=== PATIENT | male | born 1965 ===

== ENCOUNTER 2017-02-09 09:39 | Inpatient (IN) | payer OTHER ==
--- NOTE | 2017-02-09 09:47 | ED PDOC ---
HPI: General Adult Time Seen by Provider: 02/09/17 09:44 Chief Complaint (Provider): chest pain History Per: Patient History/Exam Limitations: no limitations Additional Complaint(s): 51yo male comes to the ED complaining of non-radiating chest pain and vomit yesterday. Occasionally he gets short of breath. Also reports leg cramps last night. States back pain started this morning while he was at work. No dysuria, hematuria. Back pain does not radiate to the legs. PMD: Brit Past Medical History Reviewed: Historical Data, Nursing Documentation, Vital Signs Vital Signs: Last Vital Signs Temp 98 F 02/09/17 09:40 Pulse 96 H 02/09/17 11:43 Resp 20 02/09/17 11:43 BP 161/107 H 02/09/17 11:43 Pulse Ox 98 02/09/17 11:43 - Medical History PMH: HTN - Family History Family History: States: Unknown Family Hx - Allergies Allergies/Adverse Reactions: Allergies Allergy/AdvReac Type Severity Reaction Status Date / Time No Known Allergies Allergy Verified 02/09/17 09:48 Review of Systems ROS Statement: Except As Marked, All Systems Reviewed And Found Negative Cardiovascular: Positive for: Chest Pain Respiratory: Positive for: Shortness of Breath Gastrointestinal: Positive for: Vomiting Musculoskeletal: Positive for: Back Pain. Negative for: Leg Pain Physical Exam - Reviewed Nursing Documentation Reviewed: Yes Vital Signs Reviewed: Yes - Physical Exam Appears: Positive for: Well, Non-toxic, No Acute Distress Head Exam: Positive for: ATRAUMATIC, NORMAL INSPECTION, NORMOCEPHALIC Skin: Positive for: Warm, Dry Eye Exam: Positive for: EOMI, PERRL Cardiovascular/Chest: Positive for: Regular Rate, Rhythm Respiratory: Positive for: Normal Breath Sounds. Negative for: Rales, Rhonchi, Wheezing Gastrointestinal/Abdominal: Positive for: Normal Exam, Soft. Negative for: Tenderness Extremity: Positive for: Normal ROM Neurologic/Psych: Positive for: Alert, Oriented - Laboratory Results Result Diagrams: 02/09/17 10:15 02/09/17 10:15 - ECG O2 Sat by Pulse Oximetry: 98 (RA) Pulse Ox Interpretation: Normal Disposition - Clinical Impression Clinical Impression: Chest pain - Patient ED Disposition Is Patient to be Admitted: Yes - Disposition Disposition Time: 12:26 Condition: FAIR - Pt Status Changed To: Hospital Disposition Of: Observation - POA Present On Arrival: None Additional Comments - Additional Comments Additional Comments: Documented by Porter Henriquez acting as a scribe for Pb Carolina MD. All medical record entries made by the Scribe were at my direction and personally dictated by me. I have reviewed the chart and agree that the record accurately reflects my personal performance of the history, physical exam, medical decision making, and the department course for this patient. I have also personally directed, reviewed, and agree with the discharge instructions and disposition.
[2017-02-09 10:21] LABS: BASO # 0.1 K/uL (0.0-0.2); BASO % 1.4 % (0.0-2.0); EOS % 0.1 % (0.0-4.0); HEMATOCRIT 48.4 % (35.0-51.0); LYMPH # 1.1 K/uL (1.0-4.3); LYMPH % 22.3 % (20.0-40.0); MEAN CELL VOLUME 100.4 fl (80.0-94.0); MEAN CORPUSCULAR HEMOGLOBIN 33.6 pg (27.0-31.0); MEAN CORPUSCULAR HGB CONC 33.4 g/dL (33.0-37.0); MEAN PLATELET VOLUME 10.4 fl (7.2-11.7); MONO # 0.7 K/uL (0.0-0.8); MONO % 14.8 % (0.0-10.0); NEUT # 3.1 K/uL (1.8-7.0); NEUT % 61.4 % (50.0-75.0); NRBC % 0.1 % (0.0-0.0); RED CELL DISTRIBUTION WIDTH 13.2 % (11.5-14.5)
[2017-02-09 10:32] LABS: ALKALINE PHOSPHATASE 75 U/L (38-126); ALT/SGPT 118 U/L (21-72); AST/SGOT 111 U/L (17-59); BILIRUBIN,TOTAL 2.7 mg/dl (0.2-1.3); BLOOD UREA NITROGEN 12 mg/dl (9-20); CALCIUM 9.5 mg/dL (8.4-10.2); CARBON DIOXIDE 26 mmol/L (22-30); CHLORIDE 96 mmol/L (98-107); GFR AFRICAN-AMERICAN > 60; GLUCOSE,RANDOM 136 mg/dL (75-110); POTASSIUM 3.1 MMOL/L (3.6-5.0); SODIUM 143 mmol/l (132-148); TOTAL PROTEIN 9.3 G/DL (6.3-8.2)
--- NOTE | 2017-02-09 11:10 | RAD ---
HISTORY: chest pain COMPARISON: No prior. TECHNIQUE: Chest PA and lateral FINDINGS: LUNGS: No active pulmonary disease. PLEURA: No significant pleural effusion identified. No pneumothorax apparent. CARDIOVASCULAR: Normal. OSSEOUS STRUCTURES: No significant abnormalities. VISUALIZED UPPER ABDOMEN: Normal. OTHER FINDINGS: None. IMPRESSION: No active disease.
[2017-02-09] MEDS ORDERED: Potassium Chloride 20 mEq ER Tab PO ONE ×2 (12:18→12:32)
[2017-02-09] MEDS ORDERED: Metoprolol Succinate 100 mg XL Tab PO STA (14:01)
[2017-02-09] MEDS ORDERED: Labetalol 5mg/ml (4ml) IVP STA (16:11)
[2017-02-09] MEDS ORDERED: Labetalol 5mg/ml (4ml) ONE (16:12)
[2017-02-09] MEDS ORDERED: Nitroglycerin 2% 1GM UD TOP STA (17:16)
[2017-02-09 17:46] VITALS: RESP 18
[2017-02-09 17:58] VITALS: BMI 31.1
--- NOTE | 2017-02-09 20:01 | CP.PCM.CON ---
History of Present Illness - History of Present Illness History of Present Illness: THE PATIENT IS A 51 YEAR OLD MALE WITH A HISTORY OF HYPERTENSION FOR MANY YEARS. HE HAD CHEST DISCOMFORT THAT HE DESCRIBES A "BUBBLE OF AIR" IN HIS MID TO LEFT UPPER CHEST THAT LASTED FOR 3 HOURS LAST NIGHT. HE WORKS A [employer] AND WHILE AT WORK HE HAD 1 HOUR OF CHEST DISCOMFORT AGAIN AND HE CAME TO THE ER. HE DENIES TYPICAL CHEST PAIN. HE VOMITED LAST NIGHT. HE IS CHEST PAIN FREE SINCE THIS AM. HE DENIES ARM, JAW OR UPPER BACK PAIN AND HE DENIES DIAPHORESIS. HE ALSO HAD LOWER BACK PAIN. HIS FIRST TROPONIN WAS NORMAL. HIS BLOOD PRESSURE WAS ALSO ELEVATED. IT WAS DECIDED TO ADMIT HIM TO OBSERVATION AND CARDIOLOGY WAS ASKED TO SEE HIM. SH: NEGATIVE TOBACCO HEAVY ETOH USE HOME MEDS: METOROLOL SUCCINATE 100 MGS DAILY AMLODIPINE 10 MGS DAILY Past Patient History - Past Medical History & Family History Past Medical History?: Yes - Past Social History Smoking Status: Never Smoked - CARDIAC Hx Cardiac Disorders: Yes - PULMONARY Hx Respiratory Disorders: No - NEUROLOGICAL Hx Neurological Disorder: No - HEENT Hx HEENT Problems: No - RENAL Hx Chronic Kidney Disease: No - ENDOCRINE/METABOLIC Hx Endocrine Disorders: No - HEMATOLOGICAL/ONCOLOGICAL Hx Blood Disorders: No - INTEGUMENTARY Hx Dermatological Problems: No - MUSCULOSKELETAL/RHEUMATOLOGICAL Hx Musculoskeletal Disorders: No - GASTROINTESTINAL Hx Gastrointestinal Disorders: No - GENITOURINARY/GYNECOLOGICAL Hx Genitourinary Disorders: No - PSYCHIATRIC Hx Psychophysiologic Disorder: No - SURGICAL HISTORY Hx Surgeries: No - ANESTHESIA Hx Anesthesia: No Hx Anesthesia Reactions: No Hx Malignant Hyperthermia: No Meds Allergies/Adverse Reactions: Allergies Allergy/AdvReac Type Severity Reaction Status Date / Time No Known Allergies Allergy Verified 02/09/17 09:48 - Medications Medications: Current Medications Acetaminophen (Tylenol 325mg Tab) 650 mg PO Q4 PRN PRN Reason: Headache Amlodipine Besylate (Norvasc) 10 mg PO DAILY [facility] Aspirin (Aspirin Chewable) 81 mg PO DAILY [facility] Enoxaparin Sodium (Lovenox) 60 mg SC DAILY [facility] PRN Reason: Protocol Lisinopril (Zestril) 20 mg PO DAILY [facility] Metoprolol Succinate (Toprol Xl) 100 mg PO DAILY [facility] Nitroglycerin (Nitro-Bid 2% Oint) 1 in TOP Q6 [facility] Physical Exam - Respiratory Exam Respiratory Exam: Clear to Auscultation Bilateral - Cardiovascular Exam Cardiovascular Exam: REGULAR RHYTHM, +S1, +S2 - Extremities Exam Additional comments: NO LE EDEMA - Additional Findings Additional findings: EKG NSR, LVE WITH REPOLARIZATION CHANGES TROPONIN CXR NAD K+ 3.1 Results - Vital Signs Recent Vital Signs: Last Vital Signs Temp 99.1 F 02/09/17 17:49 Pulse 82 02/09/17 17:49 Resp 18 02/09/17 17:49 BP 160/102 H 02/09/17 17:49 Pulse Ox 98 02/09/17 17:48 - Labs Result Diagrams: 02/09/17 10:15 02/09/17 10:15 Assessment & Plan - Assessment and Plan (Free Text) Assessment: ATPICAL CHEST PAIN HYPERTENSION-UNCONTROLLED ELEVATED LIVER ENZYMES MOST PROBABLY FROM ETOH USE Plan: O2, NITROPASTE, ASPIRIN, METOPROLOL, LISINOPRIL, AMLODIPINE, KCL SERIAL EKGS AND TROPONINS, ECHOCARDIOGRAM
[2017-02-09] MEDS: Nitroglycerin 2% 1GM UD TOP SCH (21:24)
[2017-02-10] MEDS: Nitroglycerin 2% 1GM UD TOP SCH ×4 (04:42→21:21)
[2017-02-10 08:00] LABS: CHOLESTEROL 199 mg/dL (0-199)
--- NOTE | 2017-02-10 08:39 | HP ---
The patient is a 51-year-old male who was admitted via the Emergency Room because of sudden of chest pain on the day of admission, radiating to the back. He also admits to mild shortness of breath and headaches evolving to several times. He was brought to the Emergency Room where he was admitted for hypertensive crisis, chest pain, to rule out acute coronary syndrome. He has a past medical history of hypertension, and has had multiple episodes of hypertensive crisis i n the past. FAMILY HISTORY: Nonrevealing. SOCIAL HISTORY: He does not drink or smoke. REVIEW OF SYSTEMS: Essentially unremarkable. On physical exam the patient is alert and oriented. VITAL SIGNS: Blood pressure 161/107, with a pulse of 96, respiratory rate 20. He is afebrile, O2 sa t 98% on room air. SKIN: Shows fair turgor. Pupils equal, react to light and accommodation. MOUTH: Shows fair hygiene. JVP flat. LUNGS: Clear. HEART: Regular. No murmurs or gallops. ABDOMEN: Soft, nontender, no organomegaly. EXTREMITIES: Shows no edema or cyanosis. CENTRAL NERVOUS SYSTEM EXAMINATION: Grossly intact. LABORATORY DATA: Remarkable for WBC of 5.0, hemoglobin 16.2, platelet count 179,000. Sodium 143, po tassium 3.1, BUN of 12, creatinine 1.1, glucose 136, calcium 9.5. AST 111, ALT 118. Chest x-ray shows no acute cardiopulmonary pathology. EKG pending. IMPRESSION: Hypertensive crisis, chest pain probably secondary to hypertensive heart disease with ac cherie coronary syndrome, hypokalemia, elevated liver function studies probably secondary to alcoholic l iver disease despite patient indicating that he does not drink. PLAN: Cardiac evaluation. Monitor patient in telemetry. Appropriately control blood pressure. Ob tain further liver function studies. Obtain ultrasound of abdomen and pelvis to evaluate kidney. con dition, and also have evaluate liver condition. Further therapy will depend on findings. Max Perea MD cc: 62 TT: 02/09/2017 20:52:34 02/10/2017 07:38:41
[2017-02-10] MEDS: Metoprolol Succinate 100 mg XL Tab PO SCH (08:48)
[2017-02-10] MEDS ORDERED: Enoxaparin 60 mg Syringe SC SCH (09:00)
--- NOTE | 2017-02-10 09:41 | US ---
HISTORY: KIDNEY DZ--HYPERTENSION COMPARISON: None. TECHNIQUE: Sonographic evaluation of the abdomen. FINDINGS: LIVER: Measures 17.3 cm. Hepatopedal blood flow. Fatty infiltration manifest ultrasonographically as increased echogenicity of the liver parenchyma. No mass. No intrahepatic bile duct dilatation. GALLBLADDER: Unremarkable. No gallstones. COMMON BILE DUCT: Measures 4.0 mm. No stones. No dilatation. PANCREAS: Unremarkable as visualized. No mass. No ductal dilatation. RIGHT KIDNEY: Measures 6.2 x 11.7cm. Normal echogenicity. No calculus, mass, or hydronephrosis. LEFT KIDNEY: Measures 6.3 x 11.3cm. Normal echogenicity. No calculus, mass, or hydronephrosis. SPLEEN: Normal in size and contour. No mass. AORTA: No aneurysmal dilatation. IVC: Unremarkable. OTHER FINDINGS: None. IMPRESSION: Hepatomegaly/hepatic steatosis without focal abnormality. Otherwise no acute/ significant findings.
[2017-02-10 09:42] LABS: BLOOD UREA NITROGEN 23 mg/dl (9-20); CALCIUM 9.2 mg/dL (8.4-10.2); CARBON DIOXIDE 26 mmol/L (22-30); CHLORIDE 98 mmol/L (98-107); GFR AFRICAN-AMERICAN > 60; GLUCOSE,RANDOM 98 mg/dL (75-110); POTASSIUM 3.3 MMOL/L (3.6-5.0); SODIUM 141 mmol/l (132-148)
--- NOTE | 2017-02-10 09:58 | CP.PCM.PN ---
Subjective - Date & Time of Evaluation Date of Evaluation: 02/10/17 Time of Evaluation: 09:59 - Subjective Subjective: CHEST PAIN-FREE NO SOB BP STILL POORLY CONTROLLED Objective - Vital Signs/Intake and Output Vital Signs (last 24 hours): Temp Pulse Resp BP Pulse Ox 98.5 F 93 H 18 145/108 H 98 02/10/17 08:14 02/10/17 08:48 02/10/17 08:14 02/10/17 08:48 02/10/17 08:14 - Medications Medications: Current Medications Acetaminophen (Tylenol 325mg Tab) 650 mg PO Q4 PRN PRN Reason: Headache Amlodipine Besylate (Norvasc) 10 mg PO DAILY [facility] Last Admin: 02/10/17 08:48 Dose: 10 mg Aspirin (Aspirin Chewable) 81 mg PO DAILY [facility] Last Admin: 02/10/17 08:48 Dose: 81 mg Enoxaparin Sodium (Lovenox) 40 mg SC DAILY [facility] PRN Reason: Protocol Lisinopril (Zestril) 20 mg PO DAILY [facility] Last Admin: 02/10/17 08:48 Dose: 20 mg Metoprolol Succinate (Toprol Xl) 100 mg PO DAILY [facility] Last Admin: 02/10/17 08:48 Dose: 100 mg Nitroglycerin (Nitro-Bid 2% Oint) 1 in TOP Q6 [facility] Last Admin: 02/10/17 04:42 Dose: Not Given - Labs Labs: 02/10/17 09:32 - Constitutional Appears: Well - Head Exam Head Exam: ATRAUMATIC, NORMAL INSPECTION, NORMOCEPHALIC - Eye Exam Eye Exam: EOMI, Normal appearance, PERRL Pupil Exam: NORMAL ACCOMODATION, PERRL - ENT Exam ENT Exam: Mucous Membranes Moist, Normal Exam - Neck Exam Neck Exam: Full ROM, Normal Inspection. absent: Lymphadenopathy - Respiratory Exam Respiratory Exam: Clear to Ausculation Bilateral, NORMAL BREATHING PATTERN - Cardiovascular Exam Cardiovascular Exam: REGULAR RHYTHM, +S1, +S2. absent: Murmur - GI/Abdominal Exam GI & Abdominal Exam: Soft, Normal Bowel Sounds. absent: Tenderness - Rectal Exam Rectal Exam: NORMAL INSPECTION - Extremities Exam Extremities Exam: Full ROM, Normal Capillary Refill, Normal Inspection. absent : Joint Swelling, Pedal Edema - Back Exam Back Exam: NORMAL INSPECTION - Neurological Exam Neurological Exam: Alert, Awake, CN II-XII Intact, Normal Gait, Oriented x3 - Psychiatric Exam Psychiatric exam: Normal Affect, Normal Mood - Skin Skin Exam: Dry, Intact, Normal Color, Warm Assessment and Plan - Assessment and Plan (Free Text) Assessment: HYPERTENSIVE CRISIS CHEST PAIN DUE TO HTN HEART DZ--R/O ACS ALCOHOLIC LIVER DZ Plan: STRESS THALLIUM IN AM MONITOR AND CONTROL BP D/C IN AM IF STABLE
[2017-02-10] MEDS: Enoxaparin 40 mg Syringe SC SCH (10:00)
--- NOTE | 2017-02-10 11:14 | CARD ---
APPROVED REPORT EXAM: Two-dimensional and M-mode echocardiogram with Doppler and color Doppler. Other Information Quality : AverageRhythm : NSR INDICATION Chest Pain 2D DIMENSIONS IVSd1.00 (0.7-1.1cm)LVDd3.90 (3.9-5.9cm) LVOT Diameter2.40 (1.8-2.4cm)PWd1.11 (0.7-1.1cm) IVSs1.43 (0.8-1.2cm)LVDs3.27 (2.5-4.0cm) FS (%) 16.0 %PWs1.59 (0.8-1.2cm) M-Mode DIMENSIONS Left Atrium (MM)4.75 (2.5-4.0cm)IVSd0.94 (0.7-1.1cm) Aortic Root3.28 (2.2-3.7cm)LVDd4.75 (4.0-5.6cm) Aortic Cusp Exc.1.88 (1.5-2.0cm)PWd1.09 (0.7-1.1cm) IVSs1.56 cmFS (%) 40 % LVDs2.84 (2.0-3.8cm)PWs1.56 cm Mitral Valve MV E Lzxpsbfu93.1cm/sMV DECEL [id number] A Wkblmsre31.7cm/s MV PVB55ucD/A ratio0.8MVA (PHT)2.39cm2 TDI Lateral E' Peak V7.25cm/sMedial E' Peak V4.73cm/sE/Lateral E'5.0 E/Medial E'7.6 Pulmonary Valve PV Peak Wiyhsanl09.1cm/s LEFT VENTRICLE The left ventricle is normal size. There is normal left ventricular wall thickness. The systolic function is mildly impaired. The Ejection Fraction is 35-40%. There is global hypokinesis of the left ventricle. The left ventricular diastolic function is normal. No left ventricle thrombus noted on this study. There is no mass noted in the left ventricle. RIGHT VENTRICLE The right ventricle is normal size. There is normal right ventricular wall thickness. The right ventricular systolic function is normal. ATRIA The left atrium size is normal. The right atrium size is normal. The interatrial septum is intact with no evidence for an atrial septal defect. AORTIC VALVE The aortic valve is normal in structure and function. No aortic regurgitation is present. There is no aortic valvular stenosis. There is no aortic valvular vegetation. MITRAL VALVE The mitral valve is normal in structure and function. There is no evidence of mitral valve prolapse. There is no mitral valve stenosis. There is no mitral valve regurgitation noted. TRICUSPID VALVE The tricuspid valve is normal in structure and function. There is no tricuspid valve regurgitation noted. There is no tricuspid valve prolapse or vegetation. There is no tricuspid valve stenosis. PULMONIC VALVE The pulmonary valve is normal in structure and function. There is no pulmonic valvular regurgitation. There is no pulmonic valvular stenosis. GREAT VESSELS The aortic root is normal in size. The IVC is normal in size and collapses >50% with inspiration. PERICARDIAL EFFUSION The pericardium appears normal. There is no pleural effusion. <Conclusion> The left ventricle is normal size. The systolic function is mildly impaired. The Ejection Fraction is 35-40%. There is global hypokinesis of the left ventricle.
--- NOTE | 2017-02-10 11:49 | CARD ---
APPROVED REPORT EKG Measurement Heart [id number] SD 134P54 [id number] <Conclusion> Normal sinus rhythm Left ventricular hypertrophy with repolarization abnormality Abnormal ECG
--- NOTE | 2017-02-10 11:50 | CARD ---
APPROVED REPORT EKG Measurement Heart [id number] ND 140P43 [id number] <Conclusion> Normal sinus rhythm Moderate voltage criteria for LVH, may be normal variant T wave abnormality, consider lateral ischemia Abnormal ECG
--- NOTE | 2017-02-10 13:45 | CP.PCM.PN ---
Subjective - Date & Time of Evaluation Date of Evaluation: 02/10/17 Time of Evaluation: 09:15 - Subjective Subjective: NO FURTHER CHEST PAIN Objective - Vital Signs/Intake and Output Vital Signs (last 24 hours): Temp Pulse Resp BP Pulse Ox 98.6 F 62 18 155/101 H 96 02/10/17 12:01 02/10/17 12:01 02/10/17 12:01 02/10/17 12:01 02/10/17 12:01 - Medications Medications: Current Medications Acetaminophen (Tylenol 325mg Tab) 650 mg PO Q4 PRN PRN Reason: Headache Amlodipine Besylate (Norvasc) 10 mg PO DAILY [facility] Last Admin: 02/10/17 08:48 Dose: 10 mg Aspirin (Aspirin Chewable) 81 mg PO DAILY [facility] Last Admin: 02/10/17 08:48 Dose: 81 mg Enoxaparin Sodium (Lovenox) 40 mg SC DAILY [facility] PRN Reason: Protocol Last Admin: 02/10/17 10:00 Dose: 40 mg Lisinopril (Zestril) 20 mg PO DAILY [facility] Last Admin: 02/10/17 08:48 Dose: 20 mg Metoprolol Succinate (Toprol Xl) 100 mg PO DAILY [facility] Last Admin: 02/10/17 08:48 Dose: 100 mg Nitroglycerin (Nitro-Bid 2% Oint) 1 in TOP Q6 [facility] Last Admin: 02/10/17 10:30 Dose: 1 in - Labs Labs: 02/10/17 09:32 - Respiratory Exam Respiratory Exam: Clear to Ausculation Bilateral - Cardiovascular Exam Cardiovascular Exam: REGULAR RHYTHM, +S1, +S2 - Rectal Exam Rectal Exam: NORMAL INSPECTION - Additional Findings Additional findings: EKG NSR, LVE, T INVERSIONS I, L, CHEST LEADS TROPONINS NORMAL LIPID PROFILE NORMAL Assessment and Plan - Assessment and Plan (Free Text) Assessment: CHEST PAIN-CHEST PAIN FREE TODAY HYPERTENSION Plan: CONTINUE ASPIRIN, LOVENOX, METOPROLOL, LISINOPRIL, ATORVASTATIN, NITRATES ECHO TODAY PHARMACOLOGICAL STRESS TEST IN AM(PATIENT NEED NUCLEAR STUDY DUE TO ABNORMAL RESTING EKG AND HE ALSO COULD NOT COMPLETE AN TREADMILL STRESS TEST IN THE PAST)
[2017-02-10] MEDS ORDERED: Potassium Chloride 20 mEq ER Tab PO ONE (14:15)
[2017-02-11] MEDS: Nitroglycerin 2% 1GM UD TOP SCH ×3 (04:30→10:59)
[2017-02-11 07:29] LABS: BLOOD UREA NITROGEN 26 mg/dl (9-20); CALCIUM 9.1 mg/dL (8.4-10.2); CARBON DIOXIDE 25 mmol/L (22-30); CHLORIDE 98 mmol/L (98-107); GFR AFRICAN-AMERICAN > 60; GLUCOSE,RANDOM 102 mg/dL (75-110); POTASSIUM 3.2 MMOL/L (3.6-5.0); SODIUM 138 mmol/l (132-148)
[2017-02-11] MEDS: Enoxaparin 40 mg Syringe SC SCH (09:00)
[2017-02-11] MEDS: Metoprolol Succinate 100 mg XL Tab PO SCH ×2 (09:01→10:43)
--- NOTE | 2017-02-11 09:23 | CP.PCM.DIS ---
Provider - Provider Date of Admission: 02/11/17 01:20 Attending physician: Max Pretty MD Time Spent in preparation of Discharge (in minutes): 35 Diagnosis - Discharge Diagnosis (1) Chest pain Status: Acute (2) Hypertensive crisis Status: Acute (3) Alcoholic hepatitis Status: Acute Hospital Course - Lab Results Lab Results: Most Recent Lab Values WBC 5.0 K/uL (4.8-10.8) 02/09/17 10:15 RBC 4.82 Mil/uL (4.40-5.90) 02/09/17 10:15 Hgb 16.2 g/dL (12.0-18.0) 02/09/17 10:15 Hct 48.4 % (35.0-51.0) 02/09/17 10:15 MCV 100.4 fl (80.0-94.0) H 02/09/17 10:15 MCH 33.6 pg (27.0-31.0) H 02/09/17 10:15 MCHC 33.4 g/dL (33.0-37.0) 02/09/17 10:15 RDW 13.2 % (11.5-14.5) 02/09/17 10:15 Plt Count 179 K/uL (130-400) 02/09/17 10:15 MPV 10.4 fl (7.2-11.7) 02/09/17 10:15 Neut % (Auto) 61.4 % (50.0-75.0) 02/09/17 10:15 Lymph % (Auto) 22.3 % (20.0-40.0) 02/09/17 10:15 [place] % (Auto) 14.8 % (0.0-10.0) H 02/09/17 10:15 Eos % (Auto) 0.1 % (0.0-4.0) 02/09/17 10:15 Baso % (Auto) 1.4 % (0.0-2.0) 02/09/17 10:15 Neut # 3.1 K/uL (1.8-7.0) 02/09/17 10:15 Lymph # 1.1 K/uL (1.0-4.3) 02/09/17 10:15 [place] # 0.7 K/uL (0.0-0.8) 02/09/17 10:15 Eos # 0.0 K/uL (0.0-0.7) 02/09/17 10:15 Baso # 0.1 K/uL (0.0-0.2) 02/09/17 10:15 Sodium 138 mmol/l (132-148) 02/11/17 05:35 Potassium 3.2 MMOL/L (3.6-5.0) L 02/11/17 05:35 Chloride 98 mmol/L (98-107) 02/11/17 05:35 Carbon Dioxide 25 mmol/L (22-30) 02/11/17 05:35 Anion Gap 18 (10-20) 02/11/17 05:35 BUN 26 mg/dl (9-20) H 02/11/17 05:35 Creatinine 1.2 mg/dL (0.8-1.5) 02/11/17 05:35 Est GFR ( Amer) > 60 02/11/17 05:35 Est GFR (Non-Af Amer) > 60 02/11/17 05:35 Random Glucose 102 mg/dL (75-110) 02/11/17 05:35 Calcium 9.1 mg/dL (8.4-10.2) 02/11/17 05:35 Total Bilirubin 2.7 mg/dl (0.2-1.3) H 02/09/17 10:15 AST 111 U/L (17-59) H 02/09/17 10:15 ALT 118 U/L (21-72) H 02/09/17 10:15 Alkaline Phosphatase 75 U/L (38-126) 02/09/17 10:15 Troponin I 0.0210 ng/mL (0.00-0.120) 02/09/17 20:30 Total Protein 9.3 G/DL (6.3-8.2) H 02/09/17 10:15 Albumin 4.6 g/dL (3.5-5.0) 02/09/17 10:15 Globulin 4.7 gm/dL (2.2-3.9) H 02/09/17 10:15 Albumin/Globulin Ratio 1.0 (1.0-2.1) 02/09/17 10:15 Triglycerides 63 mg/DL (0-149) 02/10/17 05:40 Cholesterol 199 mg/dL (0-199) 02/10/17 05:40 LDL Cholesterol Direct 77 mg/dL (0-129) 02/10/17 05:40 HDL Cholesterol 96 MG/DL (30-70) H 02/10/17 05:40 - Hospital Course Hospital Course: CHEST PAIN RESOLVED BP BETTER CONTROLLED Discharge Exam - Head Exam Head Exam: ATRAUMATIC, NORMAL INSPECTION, NORMOCEPHALIC - Eye Exam Eye Exam: EOMI, Normal appearance, PERRL Pupil Exam: NORMAL ACCOMODATION, PERRL - GI/Abdominal Exam GI & Abdominal Exam: Normal Bowel Sounds - Rectal Exam Rectal Exam: NORMAL INSPECTION - Neurological Exam Neurological exam: Alert, CN II-XII Intact, Normal Gait, Oriented x3, Reflexes Normal - Psychiatric Exam Psychiatric exam: Normal Affect, Normal Mood - Skin Skin Exam: Dry, Intact, Normal Color, Warm Discharge Plan - Follow Up Plan Condition: FAIR Disposition: HOME/ ROUTINE Patient education suggested?: Yes Additional Instructions: DISCHARGE TODAY AFTER STRESS THALLIUM FOLLOW UP WITH DR PRETTY IN 1 WEEK
[2017-02-11] MEDS ORDERED: Potassium Chloride 20 mEq ER Tab PO ONE (09:28)
[2017-02-11] MEDS ORDERED: Aminophylline 25 mg/ml Inj ONE (09:41)
--- NOTE | 2017-02-11 10:25 | CP.PCM.PN ---
Subjective - Date & Time of Evaluation Date of Evaluation: 02/11/17 Time of Evaluation: 08:00 - Subjective Subjective: NO CHEST PAIN Objective - Vital Signs/Intake and Output Vital Signs (last 24 hours): Temp Pulse Resp BP Pulse Ox 98.6 F 72 18 130/84 99 02/11/17 08:05 02/11/17 08:05 02/11/17 08:05 02/11/17 08:05 02/11/17 08:05 - Medications Medications: Current Medications Acetaminophen (Tylenol 325mg Tab) 650 mg PO Q4 PRN PRN Reason: Headache Last Admin: 02/11/17 03:11 Dose: 650 mg Amlodipine Besylate (Norvasc) 10 mg PO DAILY [facility] Last Admin: 02/11/17 09:01 Dose: Not Given Aspirin (Aspirin Chewable) 81 mg PO DAILY [facility] Last Admin: 02/11/17 09:00 Dose: Not Given Enoxaparin Sodium (Lovenox) 40 mg SC DAILY [facility] PRN Reason: Protocol Last Admin: 02/11/17 09:00 Dose: Not Given Lisinopril (Zestril) 20 mg PO DAILY [facility] Last Admin: 02/11/17 09:02 Dose: Not Given Metoprolol Succinate (Toprol Xl) 100 mg PO DAILY [facility] Last Admin: 02/11/17 09:01 Dose: Not Given Nitroglycerin (Nitro-Bid 2% Oint) 1 in TOP Q6 [facility] Last Admin: 02/11/17 04:30 Dose: 1 in - Labs Labs: 02/11/17 05:35 - Respiratory Exam Respiratory Exam: Clear to Ausculation Bilateral - Cardiovascular Exam Cardiovascular Exam: REGULAR RHYTHM, +S1, +S2 - Extremities Exam Extremities Exam: Normal Inspection Assessment and Plan - Assessment and Plan (Free Text) Assessment: CHEST PAIN HYPERTENSION Plan: CONTINUE METOPROLOL, AMLODIPINE AND LISINOPRIL FOR PHARMACOLOGICAL STRESS TEST TODAY
[2017-02-11 12:41] VITALS: BP 147/94; PULSE 74; TEMP 98.4; O2SAT 100
--- NOTE | 2017-02-12 08:06 | CARD ---
APPROVED REPORT Protocol: LEXISCAN Test Type: LEXISCAN Medications: TYLENOL 325MG, NORVASC 10MG, ASPIRIN 81MG, LOVENOX 40mg, ZESTRIL 20mg, TOPROL [id number], NITROGLYCERIN Medical History: CHEST PAIN Target HR: 167 bpm Resting ECG: left ventricular hypertrophy Resting Heart Rate: 73 bpm Resting Blood Pressure: 146/90mmHg submaximum (85%): 142 bpm TEST SUMMARY PREINJECTPRE-INJEC06:[id number]/[id number]. [id number]/[id number]. INJECTIONNS FLUSH00:[id number]/90.0. INJECTIONNUC MED00:[id number]/[id number]. [id number]/94.0. PROCEDURE Pharmacologic stress testing was performed using 0.4mg per 5ml of regadenoson given intravenously over 7-10 seconds. POST EXERCISE Reason for Termination: Pharmacologic Stress Test Target HR: No Max HR: 93 bpm 56% of Maximum Predicted HR: 167 bpm Exercise duration: 01:00 min:sec, 0 Stage Exercise capacity: 1.0METs Max Blood Pressure: 166/122mmHg Blood Pressure response to exercise: normal resting BP - appropriate response Heart Rate response to exercise: appropriate Chest Pain: No, none Angina index: 0 Arrhythmia: No, none ST Change: No, none Deviation: 0 mm Clinical Indications Under Appropriate Use Criteria This 51-year-old hypertensive man was hospitalized with symptoms of chest pain and an acute myocardial infarction was ruled out. The patient underwent this study to evaluate him for possible coronary artery disease and myocardial ischemia. His resting electric cardiogram showed sinus rhythm with a pattern of left ventricular hypertrophy. His resting blood pressure was 146/90 mmHg. His cardiac auscultation was unremarkable. Stress EKG Interpretation The patient underwent a resting myocardial scan after 10 mCi of sestamibi was given intravenously followed 45 minutes later by myocardial scanning. An hour and a half from the initial administration of sestamibi, the patient underwent an intravenous infusion of 0.4 mg of Lexiscan given over 10 seconds. This was immediately followed by 30 mCi of sestamibi given intravenously. The patient tolerated Lexiscan infusion without any symptoms and with no ischemic ST-T changes on the electrocardiogram. The patient left the stress lab symptom free and hemodynamically stable. 45 minutes later he underwent a second myocardial scan. The 2 sets of images were processed. Gated and planar images were acquired. Tomographic images were examined. EXAM: Myocardial Perfusion REST/STRESS Image QualityGood Imaging Protocol The imaging protocol used to acquire images was Rest Tc-99m/stress Tc-99m 1 day Rest Spect myocardial perfusion imaging was performed in supine position 40 minutes following the injection of 10 mCi of Tc-99 Myoview. Time of rest injection: 8:00 Time of rest imagin:40 At peak stress, the patient was injected intravenously with 30mCi of Tc-99 tetrofosmin after an infusion time of minutes and seconds. Time of stress injection: 10:05 Time of stress imagin:24 Gated Stress Spect was performed 75 minutes after intravenous Tc-99 Myoview injection. The images were gated to evaluate regional wall motion and calculate ventricular ejection fraction. LV Perfusion Both the resting as well as post Lexiscan images showed normal regional sestamibi uptake. Wall Motion Gated images showed a normal-sized left ventricle with normal regional wall motion and wall thickening. His resting left ventricular ejection fraction was 73%. CONCLUSION 1. The test failed to demonstrated any areas of potentially ischemic myocardium. His resting left ventricular ejection fraction was 73%.
== END 2017-02-11 14:30 | disposition home or self-care (01) | DRG 305 ==
LOC: H.ER 09:39 → INTOOBSV 12:23 → H.ERHOLD 12:23 → H.TEL 17:28 → OBSVTOIN 02-11 01:20
PROVIDERS: ADMIT Internal Medicine Pulmonary Disease; ATTEND Internal Medicine Pulmonary Disease
DX: I16.9 Hypertensive crisis, unspecified (principal); K70.10 Alcoholic hepatitis without ascites; R07.89 Other chest pain; I10 Essential (primary) hypertension; R74.8 Abnormal levels of other serum enzymes

== ENCOUNTER 2018-01-28 12:46 | Emergency (ER) | payer BC, OTHER ==
[2018-01-28 12:46] VITALS: BMI 31.1
[2018-01-28 12:56] VITALS: RESP 18; O2SAT 98
--- NOTE | 2018-01-28 13:56 | ED PDOC ---
HPI: Abdomen Time Seen by Provider: 01/28/18 13:04 Chief Complaint (Nursing): Groin Pain Chief Complaint (Provider): Groin Pain History Per: Patient History/Exam Limitations: no limitations Onset/Duration Of Symptoms: Days Additional Complaint(s): 52 year old male presents to the ED complaining of pain to his right inguinal area. Patient reports that he only feels pain in certain movements- laying down and turning side to side, when he stands up, and walking. Otherwise: (-) vomiting, (-) diarrhea, (-) fever, (-) anorexia, (-) urinary symptoms, (-) mass , (-) scrotal pain, (-) scrotal swelling, (-) joint pain, (-) trauma, (-) other injury. PMD: Dr. Max Perea MD Past Medical History Reviewed: Historical Data, Nursing Documentation, Vital Signs Vital Signs: Last Vital Signs Temp 98.6 F 01/28/18 14:42 Pulse 90 01/28/18 14:42 Resp 18 01/28/18 14:42 BP 164/98 H 01/28/18 14:42 Pulse Ox 98 01/28/18 14:42 - Medical History PMH: HTN (many episodes of hypertensive crisis) Denies: Arthritis, Asthma, Atrial Fibrillation, CHF, COPD, Diabetes, HIV, Hypercholesterolemia, Chronic Kidney Disease, Seizures - Surgical History Surgical History: Denies: CABG, Pacemaker - Family History Family History: States: Unknown Family Hx Denies: CAD - Home Medications Home Medications: Ambulatory Orders Medication Instructions Recorded Metoprolol Succinate 100 mg PO DAILY 02/09/17 amLODIPine [Norvasc] 10 mg PO DAILY 02/09/17 Lisinopril [Prinivil] 20 mg PO DAILY 30 Days tablet 02/11/17 Meloxicam [Mobic] 15 mg PO DAILY PRN #20 tab 01/28/18 - Allergies Allergies/Adverse Reactions: Allergies Allergy/AdvReac Type Severity Reaction Status Date / Time No Known Allergies Allergy Verified 02/09/17 09:48 Review of Systems ROS Statement: Except As Marked, All Systems Reviewed And Found Negative Gastrointestinal: Positive for: Abdominal Pain (right inguinal pain) Physical Exam - Physical Exam Comments: GENERAL APPEARANCE: Patient is awake, alert, oriented x 3, in no acute distress SKIN: Warm, dry; (-) cyanosis. EYES: (-) conjunctival pallor, (-) scleral icterus. ENMT: Mucous membranes moist. NECK: (-) tenderness, (-) stiffness, (-) lymphadenopathy. CHEST AND RESPIRATORY: breath sounds equal bilaterally. HEART AND CARDIOVASCULAR: (-) irregularity; (-) murmur, (-) gallop. ABDOMEN: Soft, (-) distention, (-) tenderness, (-) guarding, (-) rebound, (-) mass, (-) hernia. EXTREMITIES: (-) deformity, (-) edema, (-) tenderness, (+) FROM, (+) distal pulses. NEURO AND PSYCH: Mental status as above; (-) focal findings. - ECG O2 Sat by Pulse Oximetry: 98 (RA) Pulse Ox Interpretation: Normal Medical Decision Making Medical Decision Making: Time: 13:17 --Urine culture --Urinalysis --Hip with pelvis x-ray UA +protiens (likely due to pt's h/o HTN), but no evidence of infection. XR R hip / pelvis : no fracture, no dislocation, as read by PA Patient advised that official radiology read of XR is still pending and will call the patient if there is any discrepancy within 24 hours. XR and ua results d/w the patient. On re-evaluation, patient is laying in bed comfortably in no acute distress. Abdomen remains soft with no tenderness, no guarding, no mass, no hernia. Advised that his symptoms may likely me a muscle/ groin strain, however if his symptoms become worse, he develops a fever, or urinary symptoms, instructed to return to the ER for re-evaluation. Based on history, exam and diagnostic results plan will be for outpt f/u. Advised to follow up with primary care physician in 1-2 days without fail. Advised to take medication as prescribed. Advised to f/u +protiens in the urine w/ pmd. Return to the emergency room at any time for any new or worsening symptoms. Patient states he fully agrees with and understands discharge instructions. States that he agrees with the plan and disposition. Verbalized and repeated discharge instructions and plan. I have given the patient opportunity to ask any additional questions. ---- Scribe Attestation: Documented by Carri Mancilla, acting as a scribe for Bridgett Parada PA-C Provider Scribe Attestation: All medical record entries made by the Scribe were at my direction and personally dictated by me. I have reviewed the chart and agree that the record accurately reflects my personal performance of the history, physical exam, medical decision making, and the department course for this patient. I have also personally directed, reviewed, and agree with the discharge instructions and disposition. Disposition - Clinical Impression Clinical Impression: Right groin pain - Patient ED Disposition Is Patient to be Admitted: No Counseled Patient/Family Regarding: Studies Performed, Diagnosis, Need For Followup, Rx Given - Disposition Disposition: Routine/Home Disposition Time: 15:00 Condition: STABLE Additional Instructions: Thank you for letting us take care of you today. You were treated for R groin pain. The emergency medical care you received today was directed at your acute symptoms. Return to the Emergency Department if your symptoms worsen, do not improve, or if you have any other problems. Please contact your doctor in 2 days for re-evaluation and follow up. Bring any paperwork you were given at discharge with you along with any medications you are taking to your follow up visit. Our treatment cannot replace ongoing medical care by a primary care provider (PCP) outside of the emergency department. Thank you for allowing the [facility] team to be part of your care today. Prescriptions: Meloxicam [Mobic] 15 mg PO DAILY PRN #20 tab PRN Reason: Pain, Moderate (4-7) Instructions: Groin Strain Forms: [employer] ([place]), [facility] ED School/Work Excuse
--- NOTE | 2018-01-28 14:17 | RAD ---
PROCEDURE: Right Hip with pelvis Radiographs. HISTORY: pain COMPARISON: None. FINDINGS: BONES: No acute fracture or destructive bony lesion identified. JOINTS: No subluxation or dislocation. No suspicious joint space narrowing at the bilateral sacroiliac and hip joints. Limited cortical sclerosis of the bilateral acetabuli may reflect an element of degenerative joint disease though limited. Pubic symphysis appears intact. SOFT TISSUES: Normal. OTHER FINDINGS: None. 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 No fracture, subluxation or dislocation. Pelvic ring is intact.
[2018-01-28 14:27] LABS: SQUAMOUS EPITHIAL < 1 /hpf (0-5); URINE BILIRUBIN NEGATIVE (NEGATIVE); URINE BLOOD NEGATIVE (NEGATIVE); URINE CLARITY SLIGHTY-CLOUDY (Clear); URINE COLOR AMBER (YELLOW); URINE GLUCOSE (UA) NEG (Normal); URINE LEUKOCYTE ESTERASE NEG Leu/uL (Negative); URINE PROTEIN >=500 mg/dL (NEGATIVE)
[2018-01-28 14:43] VITALS: BP 164/98; PULSE 90; TEMP 98.6
[2018-01-28 14:45] LABS: GRANULAR CAST 0-1 /lpf (0-1)
[2018-01-28 14:46] LABS: URINE BACTERIA FEW (<OCC)
== END 2018-01-28 15:17 | disposition home or self-care (01) ==
LOC: H.ER 12:46
DX: B96.20 Unspecified Escherichia coli [E. coli] as the cause of diseases classified elsewhere (principal); I10 Essential (primary) hypertension; M16.0 Bilateral primary osteoarthritis of hip

== ENCOUNTER 2018-02-21 15:00 | Emergency (ER) | payer BC ==
[2018-02-21 15:00] VITALS: BMI 31.1
[2018-02-21 16:07] VITALS: RESP 18
[2018-02-21] MEDS ORDERED: Sodium Chloride 0.9% 1,000 ML IV STA (17:27)
--- NOTE | 2018-02-21 17:28 | ED PDOC ---
HPI: Abdomen Time Seen by Provider: 02/21/18 16:56 Chief Complaint (Nursing): Abdominal Pain History Per: Patient Additional Complaint(s): Pt. states he developed R sided hip pain and RLQ abd pain on 01/28/2018. He was seen in this ED and had a negative work up but no CT at that time. States after being dc'd pain did resolve but returned last night. Also reports on Wednesday he developed vomiting but resolved. On Wednesday pain was not present. Last BM was today and was normal. Denies fever, dysuria, hematuria, diarrhea, previous abd surgeries, chest pain, abd pain, back pain, trauma. Reports pain is worse with movement. Past Medical History Reviewed: Historical Data, Nursing Documentation, Vital Signs Vital Signs: Last Vital Signs Temp 98.8 F 02/21/18 23:05 Pulse 93 H 02/21/18 23:05 Resp 18 02/21/18 23:05 BP 146/111 H 02/21/18 23:05 Pulse Ox 98 02/21/18 23:05 - Medical History PMH: HTN (many episodes of hypertensive crisis) Denies: Arthritis, Asthma, Atrial Fibrillation, CHF, COPD, Diabetes, HIV, Hypercholesterolemia, Chronic Kidney Disease, Seizures - Surgical History Surgical History: Denies: CABG, Pacemaker - Family History Family History: Denies: CAD - Home Medications Home Medications: Ambulatory Orders Medication Instructions Recorded Metoprolol Succinate 100 mg PO DAILY 02/09/17 amLODIPine [Norvasc] 10 mg PO DAILY 02/09/17 Lisinopril [Prinivil] 20 mg PO DAILY 30 Days tablet 02/11/17 Meloxicam [Mobic] 15 mg PO DAILY PRN #20 tab 01/28/18 Nabumetone [Relafen] 750 mg PO BID #10 tab 02/21/18 - Allergies Allergies/Adverse Reactions: Allergies Allergy/AdvReac Type Severity Reaction Status Date / Time No Known Allergies Allergy Verified 02/09/17 09:48 Review of Systems ROS Statement: Except As Marked, All Systems Reviewed And Found Negative Gastrointestinal: Positive for: Abdominal Pain Physical Exam - Physical Exam Appears: Positive for: Well, Non-toxic, No Acute Distress Skin: Positive for: Normal Color, Warm. Negative for: Rash Eye Exam: Positive for: Normal appearance, EOMI, PERRL. Negative for: Scleral icterus (b/l) ENT: Positive for: Normal ENT Inspection Neck: Positive for: Normal, Painless ROM Cardiovascular/Chest: Positive for: Regular Rate, Rhythm Respiratory: Positive for: CNT, Normal Breath Sounds Gastrointestinal/Abdominal: Positive for: Normal Exam, Soft. Negative for: Tenderness (to deep palpation) Back: Positive for: Normal Inspection. Negative for: L CVA Tenderness, R CVA Tenderness Extremity: Positive for: Normal ROM, Other (R lateral hip tenderness without deformity; no pelvic tenderness) Neurologic/Psych: Positive for: Alert, Oriented. Negative for: Aphasia, Facial Droop - Laboratory Results Result Diagrams: 02/21/18 17:45 02/21/18 17:45 - ECG O2 Sat by Pulse Oximetry: 99 - Progress ED Course And Treament: Of note, pt. was sent to ED by Dr. Perea who evaluated pt. today. Pt offered pain meds but refused. Labs, CT abd/pelvis w/ IV contrast, IV NS bolus x 1 ordered. NPO precautions. Disposition - Clinical Impression Clinical Impression: Right groin pain, Abdominal pain - Patient ED Disposition Is Patient to be Admitted: Transfer of Care (Signed out to Ector PÉREZ pending CT results) - Disposition Disposition: Routine/Home Disposition Time: 20:00 Condition: STABLE Prescriptions: Nabumetone [Relafen] 750 mg PO BID #10 tab Instructions: Groin Strain, Acute Abdomen (Belly Pain) Forms: [employer] (Pashto)
[2018-02-21 17:50] LABS: BASO # 0.1 K/uL (0.0-0.2); BASO % 1.3 % (0.0-2.0); EOS % 0.3 % (0.0-4.0); HEMOGLOBIN 15.9 g/dL (12.0-18.0); LYMPH # 1.3 K/uL (1.0-4.3); LYMPH % 20.5 % (20.0-40.0); MEAN CELL VOLUME 99.7 fl (80.0-94.0); MEAN CORPUSCULAR HEMOGLOBIN 33.8 pg (27.0-31.0); MEAN CORPUSCULAR HGB CONC 33.9 g/dL (33.0-37.0); MEAN PLATELET VOLUME 10.6 fl (7.2-11.7); MONO # 1.1 K/uL (0.0-0.8); MONO % 18.4 % (0.0-10.0); NEUT # 3.7 K/uL (1.8-7.0); NEUT % 59.5 % (50.0-75.0); NRBC % 0.1 % (0.0-0.0); RBC 4.7 Mil/uL (4.40-5.90); WHITE BLOOD COUNT 6.1 K/uL (4.8-10.8)
[2018-02-21 18:17] LABS: ALBUMIN 4.1 g/dL (3.5-5.0); ALT/SGPT 160 U/L (21-72); AST/SGOT 130 U/L (17-59); BLOOD UREA NITROGEN 20 mg/dl (9-20); CALCIUM 9.5 mg/dL (8.4-10.2); GFR AFRICAN-AMERICAN > 60; GFR NON-AFRICAN AMERICAN 58
[2018-02-21 18:30] LABS: SQUAMOUS EPITHIAL < 1 /hpf (0-5); URINE BILIRUBIN NEGATIVE (NEGATIVE); URINE BLOOD NEGATIVE (NEGATIVE); URINE CLARITY SLIGHTY-CLOUDY (Clear); URINE COLOR AMBER (YELLOW); URINE GLUCOSE (UA) NEG (Normal); URINE LEUKOCYTE ESTERASE NEG Leu/uL (Negative); URINE PROTEIN >=500 mg/dL (NEGATIVE)
[2018-02-21] MEDS ORDERED: Iohexol 300 100 ML IJ ONE (19:09)
--- NOTE | 2018-02-21 22:12 | ED PDOC ---
- Laboratory Results Result Diagrams: 02/21/18 17:45 02/21/18 17:45 - ECG O2 Sat by Pulse Oximetry: 99 - Progress ED Course And Treament: Case endorsed to typewriter ribbon winder from Tomasa PÉREZ pending CT EXAM: CT Abdomen and Pelvis With Intravenous Contrast EXAM DATE/TIME: 02/21/2018 5:26 PM CLINICAL HISTORY: 52 year old male with RLQ pain TECHNIQUE: Axial computed tomography images of the abdomen and pelvis with intravenous contrast. All CT scans at this facility use one or more dose reduction techniques, viz.: automated exposure control; ma/kV adjustment per patient size (including targeted exams where dose is matched to indication; i.e. head); or iterative reconstruction technique. CONTRAST: 90 mL of Omnipaque administered intravenously COMPARISON: No relevant prior studies available FINDINGS: Lung bases: Unremarkable. No mass nor consolidation. ABDOMEN: Liver: No mass. Diffuse fatty infiltration. Gallbladder and bile ducts: Unremarkable. No calcified stones. No ductal dilatation. Pancreas: Unremarkable. No mass. No ductal dilatation. Spleen: Unremarkable. No splenomegaly. Adrenals: Unremarkable. No mass. Kidneys and ureters: Unremarkable. No solid mass. No hydronephrosis. Stomach and bowel: Unremarkable. No bowel obstruction. No mucosal thickening. Appendix: A normal appendix is visualized. PELVIS: Bladder: Unremarkable. No mass nor stones. Reproductive: Unremarkable as visualized. ABDOMEN and PELVIS: Intraperitoneal space: Unremarkable. No free air. No significant fluid collection. Bones/joints: No acute fracture nor dislocation. Soft tissues: Unremarkable. Vasculature: Unremarkable. No abdominal aortic aneurysm. Lymph nodes: Unremarkable. No enlarged lymph nodes. IMPRESSION: No acute pathology. A normal appendix is visualized. No significant RLQ pathology is evident. Findings discussed with Dr. Perea, recommends Relafen 750mg BID Follow up in office Wed. Patient educated on findings. Return precautions given. Disposition - Clinical Impression Clinical Impression: Right groin pain, Abdominal pain - POA Present On Arrival: None - Disposition Disposition: Routine/Home Disposition Time: 22:36 Condition: STABLE Prescriptions: Nabumetone [Relafen] 750 mg PO BID #10 tab Instructions: Groin Strain, Acute Abdomen (Belly Pain) Forms: [employer] (Rwandan)
[2018-02-21 23:06] VITALS: BP 146/111; PULSE 93; TEMP 98.8
--- NOTE | 2018-02-22 09:31 | CT ---
PROCEDURE: CT Abdomen and Pelvis with contrast HISTORY: RLQ abd pain COMPARISON: Abdomen ultrasound examination 02/10/2017 TECHNIQUE: Following the intravenous administration of iodinated contrast material, a CT examination of the abdomen and pelvis performed from the domes of the diaphragms to the symphysis pubis with reformatted datasets provided not only axial but also sagittal and coronal planes. Oral contrast was not administered as per referring physician request. Contrast dose: Omnipaque 300, 90 cc Radiation dose: Total exam DLP = 990.37 mGy-cm. This CT exam was performed using one or more of the following dose reduction techniques: Automated exposure control, adjustment of the mA and/or kV according to patient size, and/or use of iterative reconstruction technique. FINDINGS: LOWER THORAX: Cardiomegaly is identified. Borderline pulmonary venous skin engorgement. Limited bilateral basilar ground-glass opacity. No acute infiltrate or pleural effusion identified bilaterally. LIVER: Diffuse hepatic steatosis is manifest by diminished attenuation throughout the liver. No focal mass or intrahepatic biliary dilatation appreciated. GALLBLADDER AND BILE DUCTS: Unremarkable. PANCREAS: Unremarkable. No gross lesion or ductal dilatation. SPLEEN: Unremarkable. ADRENALS: Unremarkable. No mass. KIDNEYS AND URETERS: Mild prostate enlargement noted. Right kidney appears normal. A tiny lucency seen in the periphery of the midpole left kidney laterally, too small to characterize, likely representing a cyst however. VASCULATURE: Unremarkable. No aortic aneurysm. BOWEL: No obstruction. No gross mural thickening. Eyns-oq-hyswuyct fecal loading is seen the right hemicolon and minimally at the rectum. APPENDIX: Normal appendix. PERITONEUM: Unremarkable. No free fluid. No free air. LYMPH NODES: Unremarkable. No enlarged lymph nodes. BLADDER: Unremarkable. REPRODUCTIVE: Mild prostate gland enlargement noted. BONES: No acute fracture. OTHER FINDINGS: None. IMPRESSION: Nonacute abdomen pelvis CT examination including the appendix. Hepatic steatosis. Tendinosis of the left kidney too small to characterize but likely reflecting small cyst. Concordant preliminary report from [facility], 02/21/2018.
[2018-02-23 20:29] VITALS: O2SAT 99
== END 2018-02-21 23:12 | disposition home or self-care (01) ==
LOC: H.ER 15:00
DX: R10.31 Right lower quadrant pain (principal); I10 Essential (primary) hypertension; K76.0 Fatty (change of) liver, not elsewhere classified
CPT/HCPCS: 74177; 80053; 81003; 85025; 87086; 99284; J7040; Q9967